=== PATIENT | female | born 1960 | race Caucasian/White ===

== ENCOUNTER → 2016-09-13 | Outpatient (REF) ==
--- NOTE | 2016-09-13 13:54 | REP ---
PARTIAL LUMBAR SPINE, THREE VIEWS: HISTORY: Degenerative disc disease. There is no acute fracture. The intervertebral discs are decreased in height consistent with disc degeneration. Osteophytes are present on L1-4. There are 3 mm of grade 1 spondylolisthesis of L4 on 5. IMPRESSION: Degenerative change as described above. Signed by Chandan Carrasco MD 09/13/2016 01:57 P
--- NOTE | 2016-09-13 15:10 | REP ---
RIGHT KNEE SERIES: Five views right knee performed. There is no acute fracture or dislocation. There is moderately severe medial joint space narrowing with subchondral sclerosis. There is moderate diffuse spurring. There is mild spurring of the superior and inferior poles of patella with moderate spurring of the lateral and medial patellar facets. There is mild patellofemoral compartment narrowing with subchondral sclerosis. There is a small joint effusion. IMPRESSION: Moderately severe degenerative changes. Small joint effusion. Signed by Ahmet Norris MD 09/13/2016 05:24 P
== END ==
LOC: M SMT 12:12
PROVIDERS: ATTEND Internal Medicine
DX: Z02.71 Encounter for disability determination (principal)